=== PATIENT | female | born 1945 | race Caucasian/White ===

== ENCOUNTER 2020-08-05 11:20 | Emergency (ER) | payer MEDICARE, OTHER, SELFPAY ==
[2020-08-05 11:34] VITALS: BP 139/55; PULSE 63; RESP 18; TEMP 36.2; O2SAT 100
[2020-08-05 11:42] VITALS: BP 139/55; PULSE 63; RESP 18; TEMP 36.2; O2SAT 100
--- NOTE | 2020-08-05 11:57 | ED.EYEPROB ---
HPI - Eye Problem General Chief complaint: Eye Problems Stated complaint: something in eye Source: patient and RN notes reviewed Mode of arrival: ambulatory Limitations: no limitations History of Present Illness HPI Narrative: This is a 74-year-old white female who presents today complaining of left eye discomfort. According to the patient she was in her yard yesterday working when she developed discomfort to her left eye. Patient noted that she felt like an object worsen her eye upper eyelid. he noted that she do not believe that a foreign object was in her eye when she felt as if something was scratching her eye. Patient has a history of styes and thought that she could have possibly been developing a stye. While at home she did apply some of her stye medication. A split lamp exam was completed no abrasion was found. Patient was discharged home with the eyewash and instructed to continue using her stye medication. The patient denies SOB, CP, palpitation, extremity numbness, lightheadedness, dizziness, constipation, diarrhea, chills, fever visual disturbance, eye redness, eye injury or eye discharge MD chief complaint: eye pain and foreign body Related Data Home Medications Medication Instructions Recorded Confirmed fosinopril 40 mg PO DAILY 08/05/20 08/05/20 hydrochlorothiazide 25 mg PO DAILY 08/05/20 08/05/20 potassium chloride [Klor-Con] 20 meq PO DAILY 08/05/20 08/05/20 pravastatin 40 mg PO DAILY 08/05/20 08/05/20 Allergies Allergy/AdvReac Type Severity Reaction Status Date / Time doxycycline Allergy Mild Hives Verified 08/05/20 11:29 DIPHENHYDRAMINE HCL Allergy Mild Hives Uncoded 08/05/20 11:29 Generic Septra Allergy Mild Hives Uncoded 08/05/20 11:29 SMZ/TMP DS Allergy Mild Hives Uncoded 08/05/20 11:29 Review of Systems Review of Systems: All systems reviewed & are unremarkable except as noted in HPI and below (10 point system review) Exam Narrative: Exam Narrative: GENERAL: This is a well-nourished, well-developed patient, in no apparent distress. HEAD: normocephalic, atraumatic. EYES: PERRL. Sclera clear/white. Vision is grossly intact. EARS: External ears normal, auditory canals clear and without drainage, TMs normal without perforation. Hearing grossly intact. NOSE: External nose normal with no obvious nasal discharge, nares without redness, no rhinorrhea. THROAT: Mucous membranes moist, posterior pharynx clear. NECK: Neck supple, non-tender without lymphadenopathy, masses or thyromegaly. CARDIOVASCULAR: Regular rate and rhythm without murmurs, gallops, or rubs. RESPIRATORY: Clear to auscultation. Breath sounds equal bilaterally. No wheezes, rales, or rhonchi. GASTROINTESTINAL: Abdomen soft, non-tender, nondistended. Bowel sounds are active. No hepato-splenomegaly, or palpable masses. No guarding. SKIN: warm, intact with no suspicious lesions or rash, good texture and turgor. NEURO: awake, alert, and oriented to person, place and time. There were no obvious focal neurologic abnormalities. Steady gait EXTREMITIES: Normal range of motion. No edema. No calf tenderness. Negative Homans sign bilaterally. BACK: Nontender without deformity or crepitance. No flank tenderness. Course Course Emergency Course: slit lamp exam completed patient instructed to continue to use her eye wash and stye medication Vital Signs Vital signs: Vital Signs Temperature 97.2 F L 08/05/20 11:34 Pulse Rate 63 08/05/20 11:34 Respiratory Rate 18 08/05/20 11:34 Blood Pressure 139/55 L 08/05/20 11:34 Pulse Oximetry 100 08/05/20 11:34 Temperature 97.2 F L 08/05/20 11:42 Pulse Rate 63 08/05/20 11:42 Respiratory Rate 18 08/05/20 11:42 Blood Pressure 139/55 L 08/05/20 11:42 Pulse Oximetry 100 08/05/20 11:42 Procedures Other Procedure Procedure 1: Other Procedure: slit lamp exam completed MDM - Eye Problem Differential Diagnosis Differential diagnosis: Likely corneal abrasion, conjunctivitis, ac
== END 2020-08-05 11:59 | disposition home or self-care (01) ==
PROVIDERS: Emergency Provider Nurse Practitioner
DX: H57.12 Ocular pain, left eye (principal)
CPT/HCPCS: 99213; A9270; G0463

== ENCOUNTER 2022-03-05 18:42 | Emergency (ER) | payer MEDICARE, OTHER, SELFPAY ==
[2022-03-05 18:52] VITALS: BP 158/66; PULSE 56; RESP 18; TEMP 36.6; O2SAT 100
--- NOTE | 2022-03-05 19:29 | ED.EAR ---
HPI - Ear Problem General Chief complaint: Ear Stated complaint: left ear pain Time Seen by Provider: 03/05/22 19:29 Source: patient Mode of arrival: ambulatory Limitations: no limitations History of Present Illness HPI Narrative: 76-year-old female presents with complaint of pain to left ear since this morning. Reports that she has had some sinus congestion in the past 2 days. Is taking an [id number] generic decongestant. Took Tylenol today to treat left ear pain. Denies fever. No dizziness or hearing changes. All systems reviewed and negative except as noted above. Related Data Home Medications Medication Instructions Recorded Confirmed fosinopril 40 mg tablet 40 mg PO DAILY 08/05/20 03/05/22 hydrochlorothiazide 25 mg tablet 25 mg PO DAILY 08/05/20 03/05/22 potassium chloride 20 mEq oral 20 meq PO DAILY 08/05/20 03/05/22 packet (Klor-Con) pravastatin 40 mg tablet 40 mg PO DAILY 08/05/20 03/05/22 Allergies Allergy/AdvReac Type Severity Reaction Status Date / Time doxycycline Allergy Mild Hives Verified 03/05/22 19:08 DIPHENHYDRAMINE HCL Allergy Mild Hives Uncoded 03/05/22 19:08 Generic Septra Allergy Mild Hives Uncoded 03/05/22 19:08 SMZ/TMP DS Allergy Mild Hives Uncoded 03/05/22 19:08 Review of Systems Review of Systems: CONSTITUTIONAL: Denies fever, chills, or sweats. EYES: Denies visual changes, redness, or discharge. ENT: Denies rhinorrhea. Reports congestion and left ear pain. CARDIOVASCULAR: Denies chest pain, palpitations, or edema. RESPIRATORY: Denies cough or dyspnea. GASTROINTESTINAL: Denies abdominal pain, nausea, vomiting, or diarrhea. GENITOURINARY: Denies dysuria or hematuria. SKIN: Denies rash or itching. MUSCULOSKELETAL: Denies back pain, joint pain, or myalgia. NEUROLOGIC: Denies headache, numbness, or weakness. PSYCHIATRIC: Denies anxiety or depression. All other systems reviewed are negative, except as documented in HPI. PMFSH Comments At time of signature, agree with nursing past medical, surgical, social and family history. There is no relevant family history pertinent to the presenting complaint. Exam Narrative: GENERAL: This is a well-nourished, well-developed patient, in no apparent distress. HEAD: normocephalic, atraumatic. EYES: PERRL. Sclera clear/white. Vision is grossly intact. EARS: External ears normal, auditory canals clear and without drainage. Fluid to bilateral TMs, left TM is erythematous. No perforation. NOSE: External nose normal with no obvious nasal discharge, nares without redness, no rhinorrhea. THROAT: Mucous membranes moist, posterior pharynx clear. NECK: Neck supple, non-tender without lymphadenopathy, masses or thyromegaly. CARDIOVASCULAR: Regular rate and rhythm without murmurs, gallops, or rubs. RESPIRATORY: Clear to auscultation. Breath sounds equal bilaterally. No wheezes, rales, or rhonchi. SKIN: warm, Dry, intact with no suspicious lesions or rash, good texture and turgor. NEURO: awake, alert, and oriented to person, place and time. There were no obvious focal neurologic abnormalities. EXTREMITIES: No joint tenderness, effusion, or edema noted. Course Course Level of Care: Express Care Visit Vital Signs Vital signs: Vital Signs Temperature 36.6 C 03/05/22 18:52 Pulse Rate 56 L 03/05/22 18:52 Respiratory Rate 18 03/05/22 18:52 Blood Pressure 158/66 H 03/05/22 18:52 Pulse Oximetry 100 03/05/22 18:52 Oxygen Delivery Room Air 03/05/22 18:52 Temperature 36.6 C 03/05/22 18:52 Pulse Rate 56 L 03/05/22 18:52 Respiratory Rate 18 03/05/22 18:52 Blood Pressure 158/66 H 03/05/22 18:52 Pulse Oximetry 100 03/05/22 18:52 Oxygen Delivery Room Air 03/05/22 18:52 Reviewed Medical Decision Making MDM Narrative Medical decision making narrative: Patient is aware of diagnosis, understands and agrees to treatment plan. Anticipatory guidance given. Patient agrees to follow-up as directed and is aware of reas
== END 2022-03-05 19:43 | disposition home or self-care (01) ==
PROVIDERS: Emergency Provider Nurse Practitioner Family
DX: H65.02 Acute serous otitis media, left ear (principal); E78.00 Pure hypercholesterolemia, unspecified; I10 Essential (primary) hypertension
CPT/HCPCS: 99213; G0463

== ENCOUNTER 2022-07-25 16:17 | Emergency (ER) | payer MEDICARE, SELFPAY ==
[2022-07-25 16:35] VITALS: BP 176/66; PULSE 58; RESP 16; TEMP 36.3; O2SAT 100
--- NOTE | 2022-07-25 16:52 | ED.EAR ---
HPI - Ear Problem General Chief complaint: Ear Stated complaint: Right ear doesn't feel right Time Seen by Provider: 07/25/22 16:52 Source: patient, RN notes reviewed and old records reviewed Mode of arrival: ambulatory Limitations: no limitations History of Present Illness HPI Narrative: 76-year-old female presents to the [facility] with complaints of ?right ear does not feel right. ? Patient reports that just prior to arrival she pulled some ear wax out of her right ear and a dry piece of skin was attached. No redness, swelling or bleeding noted. No signs of infection Was concerned that the piece of dry skin needed antibiotics Related Data Home Medications Medication Instructions Recorded Confirmed fosinopril 40 mg tablet 40 mg PO DAILY 08/05/20 07/25/22 hydrochlorothiazide 25 mg tablet 25 mg PO DAILY 08/05/20 07/25/22 potassium chloride 20 mEq oral 20 meq PO DAILY 08/05/20 07/25/22 packet (Klor-Con) pravastatin 40 mg tablet 40 mg PO DAILY 08/05/20 07/25/22 Allergies Allergy/AdvReac Type Severity Reaction Status Date / Time doxycycline Allergy Mild Hives Verified 07/25/22 16:55 DIPHENHYDRAMINE HCL Allergy Mild Hives Uncoded 07/25/22 16:55 Generic Septra Allergy Mild Hives Uncoded 07/25/22 16:55 SMZ/TMP DS Allergy Mild Hives Uncoded 07/25/22 16:55 Review of Systems Review of Systems: All systems reviewed & are unremarkable except as noted in HPI and below Constitutional: Constitutional: Reports no additional constitutional complaints, Denies chills and Denies fever(s) Eyes: Eyes: Reports no additional eye complaints ENT: Reports as per HPI Cardiovascular: Cardiovascular: Reports no additional cardiovascular complaints Respiratory: Respiratory: Reports no additional respiratory complaints Gastrointestinal: Gastrointestinal: Reports no additional gastrointestinal complaints Musculoskeletal: Musculoskeletal: Reports no additional musculoskeletal complaints Integumentary/Breasts: Skin/Breast: Reports system reviewed and no additional complaints, except as docu Neurologic: Reports system reviewed and no additional complaints, except as documented Psychiatric: Psychiatric: Reports no additional psychiatric complaints Allergic/Immunologic: Allergic/Immunologic: Reports no additional allergic/immunologic complaints PMFSH Comments At the time of my signature, I reviewed and agree with the nursing past medical, surgical, social, and family history. There is no relevant family history pertinent to the patient complaint. Exam Const: General: healthy appearing, comfortable, no acute distress, well developed, alert and well nourished Nutritional Appearance: well nourished Orientation/consciousness: patient oriented x3 Limitations: no limitations HENMT: Head: normal to inspection Ears: external ears normal, TM's normal bilaterally and EAC's normal Face/Nose/Sinus: Normal external nose present and Normal nares present Face and sinus: normal facial exam Mouth: Yes Normal oral and palatal mucosa present, Yes lip normal and Yes moist mucous membranes Throat: posterior oropharynx normal and uvula midline Eyes: General: appearance normal, both eyes and all related structures Conjunctivae: conjunctivae normal Pupils: Equal, round and reactive pupils present Neck: Neck: normal visual inspection, full ROM, no lymphadenopathy and no meningeal signs Chest: Chest palpation & inspection: normal inspection of the chest Resp: Effort & Inspection: normal respiratory effort and no use of accessory muscles Auscultation: clear to auscultation bilaterally, no crackles, no rales, no rhonchi and no wheezes Cardio: Rate: regular rate Rhythm: regular rhythm Back/Spine/Pelvis: Cervical Spine: cervical ROM normal and No Cervical spine tenderness Thoracic/Lumbar Spine: thoracic and lumbar spine normal to inspection and thoraco-lumbar ROM normal Skin: General skin exam: normal color Rashes: no rashes Wounds: no wounds Neuro:
== END 2022-07-25 17:05 | disposition home or self-care (01) ==
PROVIDERS: Emergency Provider Nurse Practitioner
DX: H92.01 Otalgia, right ear (principal)
CPT/HCPCS: 99211; G0463

== ENCOUNTER 2023-08-19 01:43 | Day surgery (SDC) | payer MEDICARE, SELFPAY ==
[2023-08-04 14:21] VITALS: BMI 21.6
--- NOTE | 2023-08-17 09:17 | SUR.PREOP ---
Patient called regarding upcoming procedure. Reviewed preop instructions, appointment times, and procedure prep.
--- NOTE | 2023-08-18 13:24 | PM.HPGS ---
History of Present Illness History of Present Illness Consent: Risks, benefits, and alternatives have been discussed and questions answered. Patient agrees to proceed with procedure. Chief complaint: neoplasm screening Narrative: Pat Zavala is a 77 year old female referred for colon cancer screening her last colonoscopy was 11 years ago. Review of Systems Review of Systems: All systems reviewed & are unremarkable except as noted in HPI and below PMFSH Social History Social History Smoking status: Never smoker Alcohol intake: current Drinks per week: 2 Substance use: never Substance use type: does not use Living arrangements: alone Spiritual care concerns: No Meds Home Medications and Allergies Home Medications Medication Instructions Recorded Confirmed Type fosinopril 40 mg tablet 40 mg PO DAILY 08/05/20 08/19/23 History hydrochlorothiazide 25 mg tablet 25 mg PO DAILY 08/05/20 08/19/23 History potassium chloride 20 mEq oral 20 meq PO DAILY 08/05/20 08/19/23 History packet (Klor-Con) pravastatin 40 mg tablet 40 mg PO DAILY 08/05/20 08/19/23 History buspirone 5 mg tablet 5 mg PO DAILY PRN Anxiety 08/04/23 08/19/23 History Allergies Allergy/AdvReac Type Severity Reaction Status Date / Time doxycycline Allergy Mild Hives Verified 08/19/23 07:50 DIPHENHYDRAMINE HCL Allergy Mild Hives Uncoded 08/19/23 07:50 Generic Septra Allergy Mild Hives Uncoded 08/19/23 07:50 SMZ/TMP DS Allergy Mild Hives Uncoded 08/19/23 07:50 Exam Const: General: alert Orientation/consciousness: patient oriented x3 Resp: Auscultation: clear to auscultation bilaterally Cardio: Rhythm: regular rhythm GI: GI Palp: Yes Soft to palpation and No Tenderness to palpation present (GI) Neuro: General: patient oriented x3 Assessment and Plan Assessment and plan (1) Colon cancer screening: Code(s): Z12.11 - Encounter for screening for malignant neoplasm of colon Status: Acute Assessment and Plan: Colonoscopy with possible biopsy or polypectomy or cautery or injection of substances.
[2023-08-19 07:52] VITALS: BP 122/95; PULSE 68; RESP 16; TEMP 36.4; O2SAT 100
[2023-08-19] MEDS: LACTATED RINGERS 1,000 ML 150 ML IV CONT (07:59)
--- NOTE | 2023-08-19 08:52 | P.PNAN_ITS ---
Anes - Initial Pre Proc Eval Procedure: Operation Date: 08/19/23 09:00 Proposed Procedures p Screening Colonoscopy - Johnathan Wallace MD Date/Time: 08/19/23 08:52 Surgeon: Johnathan Wallace MD Pre Op Diagnosis: neoplasm screening Patient Data Age: 77 Gender: F Height: 1.65 m Weight: 57.1 kg Last Vital Signs Temp 97.6 F 08/19/23 07:52 Pulse 68 08/19/23 07:52 Resp 16 08/19/23 07:52 BP 122/95 H 08/19/23 07:52 Pulse Ox 100 08/19/23 07:52 O2 Del Method Room Air 08/19/23 07:52 Allergies Allergy/AdvReac Type Severity Reaction Status Date / Time doxycycline Allergy Mild Hives Verified 08/19/23 07:50 DIPHENHYDRAMINE HCL Allergy Mild Hives Uncoded 08/19/23 07:50 Generic Septra Allergy Mild Hives Uncoded 08/19/23 07:50 SMZ/TMP DS Allergy Mild Hives Uncoded 08/19/23 07:50 Home Medications Medication Instructions Recorded Confirmed Type fosinopril 40 mg tablet 40 mg PO DAILY 08/05/20 08/19/23 History hydrochlorothiazide 25 mg tablet 25 mg PO DAILY 08/05/20 08/19/23 History potassium chloride 20 mEq oral 20 meq PO DAILY 08/05/20 08/19/23 History packet (Klor-Con) pravastatin 40 mg tablet 40 mg PO DAILY 08/05/20 08/19/23 History buspirone 5 mg tablet 5 mg PO DAILY PRN Anxiety 08/04/23 08/19/23 History Patient hx anesthesia problems: none Family hx anesthesia problems: none Results Review: All pre-operative results and documents have been reviewed as part of the pre- operative evaluation. [facility] Social History Social History Smoking status: Never smoker Alcohol intake: current Drinks per week: 2 Substance use: never Substance use type: does not use Living arrangements: alone Spiritual care concerns: No Anes - Eval Final PreProcedure Day of Procedure 08/19/23 08:52 Patient weight: normal Heart: regular rate and rhythm Lungs: clear to auscultation Airway: Mallampati scale class II Neurological: alert and oriented Last oral intake: >/= 8 hours ASA classification: III Emergent: no Anesthetic plan: proceed Anesthesia type and monitoring: general GIVS and standard monitoring Results Review: All pre-operative results and documents have been reviewed as part of the pre- operative evaluation. Informed Consent: The patient's anesthetic plan and its attendant risks and benefits were discussed with the patient/family/POA. Questions were solicited and answers provided to the satisfaction of the patient/family/POA.
[2023-08-19 09:03] VITALS: BP 113/50; PULSE 59; RESP 19; O2SAT 96
[2023-08-19 09:13] VITALS: BP 131/56; PULSE 60; RESP 15; O2SAT 96
[2023-08-19 09:23] VITALS: BP 137/69; PULSE 55; RESP 18; O2SAT 99
--- NOTE | 2023-08-19 09:27 | SUR.PHASEII ---
Reported to Dr. Munoz that patient had become more hoarse and reports a sore throat since she has been out in recovery and very hard for her to talk. Patient has had water and vital signs are stable.
--- NOTE | 2023-08-19 09:35 | SUR.PHASEII ---
Patient to receive a breathing treatment, per Dr. Munoz, before she leaves.
[2023-08-19] MEDS: racEPINEPHrine 2.25% NEBU SOLN 0.5 ML VIAL.NEB INHALATION (09:40)
[2023-08-19 09:44] VITALS: PULSE 51; RESP 18
[2023-08-19 09:48] VITALS: PULSE 59; RESP 18
--- NOTE | 2023-08-19 09:54 | SUR.PHASEII ---
Per Dr. Munoz, patient is clear to be discharged home.
== END 2023-08-19 10:04 | disposition home or self-care (01) ==
PROVIDERS: Visit Provider Internal Medicine Gastroenterology
PROC: 0DJD8ZZ Inspection of Lower Intestinal Tract, Via Natural or Artificial Opening Endoscopic (ICD-10-PCS; CPT 45378; principal; 2023-08-19 09:00)
DX: Z12.11 Encounter for screening for malignant neoplasm of colon (principal); K57.30 Diverticulosis of large intestine without perforation or abscess without bleeding; K63.5 Polyp of colon
CPT/HCPCS: 45381; 45388; 88305; 94640; J2704; J7120